=== PATIENT | female | born 1975 | race Native Hawaiian/Other Pacific Islander ===

== ENCOUNTER 2018-11-26 14:52 | Outpatient (CLI) | payer OTHER | END 2018-11-26 23:03 | disposition home or self-care (01) | LOC: RAD 14:52 | DX: M79.672 Pain in left foot (principal) ==

== ENCOUNTER 2019-04-03 14:12 | Outpatient (CLI) | payer OTHER | END 2019-04-03 19:16 | disposition home or self-care (01) | LOC: RAD 14:12 | DX: M54.2 Cervicalgia (principal); M54.42 Lumbago with sciatica, left side ==

== ENCOUNTER 2019-06-12 13:54 | Emergency (ER) | payer OTHER ==
[~2019-06-12] VITALS: Ht 149.9 cm; Wt 71.2 kg
[2019-06-12 14:08] VITALS: TEMP 97.8
[2019-06-12 17:05] VITALS: BP 126/74
== END 2019-06-12 17:00 | disposition home or self-care (01) ==
LOC: ED 13:54
DX: S33.5XXA Sprain of ligaments of lumbar spine, initial encounter (principal); M54.32 Sciatica, left side; X50.0XXA Overexertion from strenuous movement or load, initial encounter
CPT/HCPCS: 96372; 99283; J1885; J2270; J2405

== ENCOUNTER 2019-06-27 09:26 | Outpatient (CLI) | payer OTHER | END 2019-06-27 23:42 | disposition home or self-care (01) | LOC: MRI 09:26 | DX: M54.42 Lumbago with sciatica, left side (principal) ==

== ENCOUNTER 2019-11-25 13:35 | Emergency (ER) | payer OTHER ==
[~2019-11-25] VITALS: Ht 149.9 cm; Wt 71.2 kg
[2019-11-25] MEDS ORDERED: LORA1TAB17 PO (13:56)
[2019-11-25 16:41] LABS: PLATELET COUNT 319 K/uL (152-353)
[2019-11-25 16:57] LABS: POTASSIUM 4.2 mmol/L (3.6-5.2)
[2019-11-25 18:00] VITALS: BP 130/76; TEMP 97.6
== END 2019-11-25 18:00 | disposition home or self-care (01) ==
LOC: ED 13:35
PROVIDERS: Family Medicine
DX: R31.9 Hematuria, unspecified (principal); R10.32 Left lower quadrant pain
CPT/HCPCS: 80053; 81000; 85027; 99283

== ENCOUNTER 2019-12-25 12:31 | Outpatient (CLI) | payer OTHER ==
[~2019-12-25 12:31] MED LIST: LORA1TAB17 PO
== END 2019-12-25 19:45 | disposition home or self-care (01) ==
LOC: RAD 12:31
DX: M54.2 Cervicalgia (principal); M54.6 Pain in thoracic spine

== ENCOUNTER 2020-01-26 12:46 | Outpatient (CLI) | payer OTHER | END 2020-01-26 19:20 | disposition home or self-care (01) | LOC: MRI 12:46 | DX: M25.512 Pain in left shoulder (principal); M54.12 Radiculopathy, cervical region ==

== ENCOUNTER 2020-05-12 10:55 | Outpatient (CLI) | payer OTHER | END 2020-05-12 19:49 | disposition home or self-care (01) | LOC: US 10:55 | DX: R10.9 Unspecified abdominal pain (principal) ==

== ENCOUNTER 2020-08-05 14:10 | Outpatient (CLI) | payer OTHER | END 2020-08-05 23:40 | disposition home or self-care (01) | LOC: MAMMO 14:10 | DX: M79.622 Pain in left upper arm (principal) ==

== ENCOUNTER 2020-08-25 13:56 | Outpatient (CLI) | payer OTHER | END 2020-08-25 23:17 | disposition home or self-care (01) | LOC: CT 13:56 → MRI 13:56 → CT 23:17 | DX: M54.2 Cervicalgia (principal) ==

== ENCOUNTER 2021-03-08 09:29 | Emergency (ER) | payer OTHER ==
[~2021-03-08] VITALS: Ht 149.9 cm; Wt 69.4 kg
[2021-03-08 09:54] LABS: PLATELET COUNT 320 K/uL (152-353)
[2021-03-08 10:06] LABS: PARTIAL THROMBOPLASTIN TIME 24.9 SECONDS (24.5-33.6)
[2021-03-08 10:10] LABS: POTASSIUM 4.1 mmol/L (3.6-5.2); SODIUM 142 mmol/L (136-145)
[2021-03-08 11:00] VITALS: TEMP 97.5
[2021-03-08 12:49] VITALS: BP 112/64
== END 2021-03-08 12:55 | disposition home or self-care (01) ==
LOC: ED 09:29
PROVIDERS: Family Medicine
DX: I20.8 Other forms of angina pectoris (principal)
CPT/HCPCS: 80053; 82550; 84484; 85027; 85610; 85730; 93005; 99283

== ENCOUNTER 2021-06-16 08:52 | Outpatient (CLI) | payer OTHER | END 2021-06-16 22:03 | disposition home or self-care (01) | LOC: RAD 08:52 | PROVIDERS: ATTEND Nurse Practitioner Family | DX: M54.40 Lumbago with sciatica, unspecified side (principal) ==

== ENCOUNTER 2021-06-30 08:55 | Outpatient (CLI) | payer OTHER | END 2021-06-30 22:34 | disposition home or self-care (01) | LOC: CT 08:55 | PROVIDERS: ATTEND Nurse Practitioner Family | DX: R10.12 Left upper quadrant pain (principal) | CPT/HCPCS: Q9963 ==

== ENCOUNTER 2021-07-15 11:09 | Outpatient (CLI) | payer OTHER | END 2021-07-15 22:00 | disposition home or self-care (01) | LOC: CT 11:09 | PROVIDERS: ATTEND Nurse Practitioner Family | DX: M54.42 Lumbago with sciatica, left side (principal) ==

== ENCOUNTER 2023-03-13 07:31 | Outpatient (CLI) | payer OTHER | END 2023-03-13 18:55 | disposition home or self-care (01) | LOC: MAMMO 07:31 | PROVIDERS: ATTEND Registered Nurse | DX: Z12.31 Encounter for screening mammogram for malignant neoplasm of breast (principal) ==